=== PATIENT | male | born 1935 | race Caucasian/White ===

== ENCOUNTER 2018-07-10 11:17 | Outpatient (REF) | payer MEDICARE, OTHER, SELFPAY ==
[2018-07-10 18:45] LABS: HCT 40.9 % (40.0-50.0); HGB 13.9 g/dL (13.5-17.5); Mean Corpuscular Hemoglobin 32.4 pg (27.0-33.0); Mean Corpuscular Volume 95.3 fL (80-95); Mean Platelet Volume 10.5 fL (8.0-11.0); Platelet Count 180 x1000/uL (130-400); RBC 4.29 m/cumm (4.50-6.00); RBC Distribution Width 12.9 % (11.8-14.1); White Blood Cell Count 4.77 k/cumm (4.4-10.8)
[2018-07-10 19:37] LABS: Anion Gap 8.6 mmol/L (3-11); BUN 13 mg/dL (7-18); CO2 28.4 mmol/L (21.0-32.0); CREATININE 0.96 mg/dL (0.70-1.30); Chloride 103 mmol/L (98-107); Glucose 97 mg/dL (70-100); LDL CHOLESTEROL 42 mg/dL (<100); Potassium 4.3 mmol/L (3.5-5.1); Sodium 140 mmol/L (136-145)
[2018-07-10 19:47] LABS: Uric Acid 3.6 mg/dL (3.5-7.2)
== END 2018-07-10 11:37 ==
LOC: NCHCN 11:17
PROVIDERS: PCP Internal Medicine; Visit Provider Internal Medicine
DX: E78.5 Hyperlipidemia, unspecified (principal); I10 Essential (primary) hypertension; M10.9 Gout, unspecified; I63.9 Cerebral infarction, unspecified
CPT/HCPCS: 80048; 83721; 85027; 84550

== ENCOUNTER 2019-07-09 12:55 | Outpatient (REF) | payer MEDICARE, OTHER, SELFPAY ==
[2019-07-09 19:57] LABS: Anion Gap 9.8 mmol/L (3-11); BUN 15 mg/dL (7-18); CO2 27.2 mmol/L (21.0-32.0); CREATININE 0.79 mg/dL (0.70-1.30); Calcium 9.1 mg/dL (8.5-10.1); Chloride 104 mmol/L (98-107); Glucose 96 mg/dL (74-106); Potassium 4.5 mmol/L (3.5-5.1); Sodium 141 mmol/L (136-145); Uric Acid 3.7 mg/dL (3.5-7.2)
[2019-07-09 20:01] LABS: HCT 40.9 % (40.0-50.0); HGB 13.5 g/dL (13.5-17.5); Mean Corpuscular Hemoglobin 31.6 pg (27.0-33.0); Mean Corpuscular Volume 95.8 fL (80-95); Mean Platelet Volume 10.3 fL (8.0-11.0); Platelet Count 195 x1000/uL (130-400); RBC 4.27 m/cumm (4.50-6.00); RBC Distribution Width 12.6 % (11.8-14.1); White Blood Cell Count 4.66 k/cumm (4.4-10.8)
== END 2019-07-09 13:15 ==
LOC: NCHCN 12:55
PROVIDERS: PCP Internal Medicine; Visit Provider Internal Medicine
DX: I10 Essential (primary) hypertension (principal); I63.9 Cerebral infarction, unspecified; L89.309 Pressure ulcer of unspecified buttock, unspecified stage
CPT/HCPCS: 80048; 85027; 84550

== ENCOUNTER 2020-11-01 13:47 | Outpatient (REF) | payer MEDICARE, SELFPAY ==
[2020-11-01 17:10] LABS: HCT 40.6 % (40.0-50.0); HGB 13.3 g/dL (13.5-17.5); MCHC 32.8 % (32.0-36.0); MCV 97.6 fL (80-95); MPV 10.6 fL (8.0-11.0); Platelet Count 188 10^3/uL (130-400); RBC 4.16 10^6/uL (4.36-5.78); RDW 12.3 % (11.8-14.1); RDW-SD 43.9 fL; WBC 4.18 10^3/uL (4.4-10.8)
[2020-11-01 17:55] LABS: ALT 28 U/L (16-63); Anion Gap 8.7 mmol/L (3-11); BUN 14 mg/dL (7-18); CO2 28.3 mmol/L (21.0-32.0); Chloride 105 mmol/L (98-107); Glucose 106 mg/dL (74-106); LDL CHOLESTEROL 52 mg/dL (<100); Potassium 4.6 mmol/L (3.5-5.1); Sodium 142 mmol/L (136-145)
== END 2020-11-01 13:48 | disposition home or self-care (01) ==
LOC: NCHCN 13:47
PROVIDERS: PCP Internal Medicine; Visit Provider Internal Medicine
DX: E78.5 Hyperlipidemia, unspecified (principal); I10 Essential (primary) hypertension; M10.9 Gout, unspecified; G31.84 Mild cognitive impairment of uncertain or unknown etiology
CPT/HCPCS: 80048; 83721; 85027; 84460

== ENCOUNTER 2021-10-23 20:46 | Outpatient (REF) | payer OTHER, SELFPAY ==
[2021-10-23 21:20] LABS: HCT 41.2 % (40.0-50.0); HGB 13.4 g/dL (13.5-17.5); MCH 32.1 pg (27.0-33.0); MCHC 32.5 % (32.0-36.0); MCV 99 fL (80-95); MPV 10.4 fL (8.0-11.0); Platelet Count 203 10^3/uL (130-400); RBC 4.17 10^6/uL (4.36-5.78); RDW 12.5 % (11.8-14.1)
[2021-10-23 21:49] LABS: ALT 27 U/L (16-63); Anion Gap 7.6 mmol/L (3-11); BUN 16 mg/dL (7-18); CO2 29.4 mmol/L (21.0-32.0); CREATININE 0.9 mg/dL (0.70-1.30); Calcium 8.7 mg/dL (8.5-10.1); Calculated LDL 56 mg/dL (<100); Chloride 105 mmol/L (98-107); Cholesterol 129 mg/dL (<200); Glucose 98 mg/dL (74-106); HDL Cholesterol 60 mg/dL (40-60); Potassium 4.4 mmol/L (3.5-5.1); Sodium 142 mmol/L (136-145); Triglyceride 68 mg/dL (<150)
== END 2021-10-23 20:47 | disposition home or self-care (01) ==
LOC: NCHCN 20:46
PROVIDERS: PCP Internal Medicine; Visit Provider Internal Medicine
DX: E78.5 Hyperlipidemia, unspecified (principal); I10 Essential (primary) hypertension; I63.9 Cerebral infarction, unspecified; R01.1 Cardiac murmur, unspecified
CPT/HCPCS: 80048; 80061; 85027; 84460

== ENCOUNTER 2023-01-17 20:49 | Outpatient (REF) | payer MEDICARE, SELFPAY ==
[2023-01-17 19:06] LABS: Abs Immature Grans 0.03 10^3/uL (0.0-0.06); Absolute Basophil Count 0.04 10^3/uL (0.0-0.2); Absolute Eosinophil Count 0.42 10^3/uL (0.0-0.7); Absolute Lymphocyte Count 0.61 10^3/uL (1.2-3.4); Absolute Monocyte Count 0.55 10^3/uL (0.1-0.8); Absolute Neutrophil Count 2.98 10^3/uL (1.2-6.7); Basophils % 0.9; Eosinophils % 9.1; HCT 39.2 % (40.0-50.0); HGB 13.1 g/dL (13.5-17.5); Immature Grans % 0.6; Lymphocytes % 13.2; MCH 32.2 pg (27.0-33.0); MCHC 33.4 % (32.0-36.0); MCV 96 fL (80-95); MPV 10.2 fL (8.0-11.0); Monocytes % 11.9; Neutrophils % 64.3; Platelet Count 188 10^3/uL (130-400); RBC 4.07 10^6/uL (4.36-5.78); RDW 12.6 % (11.8-14.1); RDW-SD 44.5 fL; WBC 4.63 10^3/uL (4.4-10.8)
[2023-01-17 19:10] LABS: ALT 22 U/L (16-63); Anion Gap 5.7 mmol/L (3-11); BUN 12 mg/dL (7-18); CO2 30.3 mmol/L (21.0-32.0); CREATININE 0.9 mg/dL (0.70-1.30); Calcium 9.1 mg/dL (8.5-10.1); Chloride 104 mmol/L (98-107); Creatine Kinase 107 U/L (39-308); Estimated GFR 83.18 (mL/min/1.73m2); Glucose 91 mg/dL (74-106); Potassium 4.1 mmol/L (3.5-5.1); Sodium 140 mmol/L (136-145)
[2023-01-17 19:23] LABS: Calculated LDL 49 mg/dL (<100); Cholesterol 117 mg/dL (<200); HDL Cholesterol 59 mg/dL (40-60); Triglyceride 45 mg/dL (<150)
== END 2023-01-17 20:50 | disposition home or self-care (01) ==
LOC: NCHCN 20:49
PROVIDERS: PCP Internal Medicine; Visit Provider Internal Medicine
DX: I10 Essential (primary) hypertension (principal); E78.5 Hyperlipidemia, unspecified
CPT/HCPCS: 80048; 80061; 82550; 82947; 84460; 85025

== ENCOUNTER 2024-01-22 18:09 | Outpatient (REF) | payer MEDICARE, SELFPAY ==
[2024-01-22 20:34] LABS: HCT 38.2 % (40.0-50.0); HGB 12.5 g/dL (13.5-17.5); MCHC 32.7 % (32.0-36.0); MCV 98 fL (80-95); MPV 10.9 fL (8.0-11.0); Platelet Count 182 10^3/uL (130-400); RBC 3.91 10^6/uL (4.36-5.78); RDW 12.5 % (11.8-14.1); RDW-SD 44.4 fL; WBC 5.06 10^3/uL (4.4-10.8)
[2024-01-22 20:59] LABS: Anion Gap 8.3 mmol/L (3-11); BUN 17 mg/dL (7-18); CO2 27.7 mmol/L (21.0-32.0); Calcium 9.1 mg/dL (8.5-10.1); Calculated LDL 46 mg/dL (<100); Chloride 105 mmol/L (98-107); Cholesterol 112 mg/dL (<200); Creatine Kinase 119 U/L (39-308); Estimated GFR 72.84 (mL/min/1.73m2); Glucose 111 mg/dL (74-106); HDL Cholesterol 57 mg/dL (40-60); Potassium 4.1 mmol/L (3.5-5.1); Sodium 141 mmol/L (136-145); Triglyceride 48 mg/dL (<150)
[2024-01-22 21:31] LABS: ALT 26 U/L (16-63)
[2024-01-23 11:26] LABS: Uric Acid 3.6 mg/dL (3.5-7.2)
== END 2024-01-22 18:10 | disposition home or self-care (01) ==
LOC: NCHCN 18:09
PROVIDERS: PCP Internal Medicine; Visit Provider Internal Medicine
DX: I10 Essential (primary) hypertension (principal); E78.5 Hyperlipidemia, unspecified; M10.9 Gout, unspecified
CPT/HCPCS: 80048; 80061; 82550; 85027; 84460; 84550

== ENCOUNTER 2024-01-23 21:08 | Outpatient (REF) | payer MEDICARE, OTHER, SELFPAY ==
[2024-01-23 18:57] LABS: Reticulocyte 1.6 % (0.5-2.4)
[2024-01-23 19:12] LABS: Iron 88 ug/dL (65-175); Total Iron Binding Capacity 266 ug/dL (250-450); Transferrin Sat 33 % (20-55)
[2024-01-23 19:49] LABS: Ferritin 197 ng/mL (26-388); Vitamin B12 748 pg/mL (193-986)
[2024-01-23 19:50] LABS: Folate > 20.0 ng/mL (8.6-20.0)
== END 2024-01-23 21:09 | disposition home or self-care (01) ==
LOC: NCHCN 21:08
PROVIDERS: PCP Internal Medicine; Visit Provider Internal Medicine
DX: D64.9 Anemia, unspecified (principal)
CPT/HCPCS: 82607; 82728; 82746; 83540; 83550; 85045

== ENCOUNTER 2025-01-27 16:05 | Outpatient (REF) | payer MEDICARE, SELFPAY ==
[2025-01-27 20:32] LABS: HCT 35.4 % (40.0-50.0); HGB 11.8 g/dL (13.5-17.5); MCH 32.5 pg (27.0-33.0); MCHC 33.3 % (32.0-36.0); MCV 98 fL (80-95); MPV 10.5 fL (8.0-11.0); Platelet Count 178 10^3/uL (130-400); RBC 3.63 10^6/uL (4.36-5.78); RDW 12.7 % (11.8-14.1); RDW-SD 44.8 fL; WBC 6.20 10^3/uL (4.4-10.8)
[2025-01-27 21:01] LABS: ALT 19 U/L (16-63); AST 16 U/L (15-37); Albumin 4.0 g/dL (3.4-5.0); Alkaline Phosphatase 25 U/L (46-116); Anion Gap 7.0 mmol/L (3-11); BUN 23 mg/dL (7-18); Bilirubin, Total 0.8 mg/dL (0.2-1.0); CO2 29.0 mmol/L (21.0-32.0); Calcium 8.9 mg/dL (8.5-10.1); Calculated LDL 57 mg/dL (<100); Chloride 105 mmol/L (98-107); Cholesterol 120 mg/dL (<200); Estimated GFR 82.15 (mL/min/1.73m2); Glucose 115 mg/dL (74-106); HDL Cholesterol 53 mg/dL (>or=40); Potassium 4.0 mmol/L (3.5-5.1); Sodium 141 mmol/L (136-145); Total Protein 7.1 g/dL (6.4-8.2); Triglyceride 50 mg/dL (<150); Uric Acid 3.8 mg/dL (3.5-7.2)
== END 2025-01-27 16:06 | disposition home or self-care (01) ==
LOC: NCHCN 16:05
PROVIDERS: PCP Internal Medicine; Visit Provider Internal Medicine
DX: E78.5 Hyperlipidemia, unspecified (principal); M10.9 Gout, unspecified; R63.4 Abnormal weight loss
CPT/HCPCS: 80053; 80061; 85027; 84550